=== PATIENT | female | born 1930 | race Caucasian/White ===

== ENCOUNTER 2016-08-03 10:28 | Inpatient (IN) | payer MEDICARE, OTHER ==
[~2016-08-03] VITALS: Ht 170.2 cm; Wt 83.7 kg
--- NOTE | 2016-08-07 11:42 | HP ---
ADMIT: 08/03/2016 RM/LOC: 519 [facility] MR#: [id number] [id number] [address] [place] [address] History and Physical SEX: F AGE: 85 : 1930 DATE OF SERVICE: CHIEF COMPLAINT: Fall and "my butt hurts." HISTORY OF PRESENT ILLNESS: The patient is a very pleasant 85-year-old female. She has a past medical history of dementia with some behavioral disturbance, atrial fibrillation, on chronic anticoagulation, who presents to [facility] Emergency Room today after a fall at [facility]. She was brought in by EMS after she fell and bumped her head. Really does not remember fall, but denies chest pain, syncope, presyncope, or palpitations. She was imaged and found to have pelvic/pubic rami fracture, in excruciating pain, she was admitted for further evaluation and treatment. Right now, the patient states her pain medicines are helping. Does note her head is a little sore, but denies any abdominal pain, bowel or bladder complaints. Due to the patient's dementia, any further history is really difficult to obtain. PAST MEDICAL HISTORY: 1. Alzheimer's dementia with behavioral disturbance. 2. Atrial fibrillation, on chronic anticoagulation. 3. GERD. 4. Constipation. 5. Acid reflux. 6. Hypothyroidism. 7. Peripheral neuropathy. 8. Anxiety/depression. 9. Status post hysterectomy. CURRENT HOME MEDICATIONS: Include: 1. Fluocinolone cream. 2. Lomotil. 3. Milk of mag. 4. Omeprazole. 5. MiraLAX. 6. Quetiapine. ALLERGIES: NO KNOWN MEDICAL ALLERGIES. FAMILY HISTORY: Noncontributory. SOCIAL HISTORY: She is nonsmoker, nondrinker, lives at [facility]. REVIEW OF SYSTEMS: As noted above. All systems reviewed and negative. PHYSICAL EXAMINATION: VITAL SIGNS: 98, 82, 16, 139/61, 94% on room air. GENERAL: This is an elderly female. She is in no apparent distress. She is awake and alert; however, she is a poor historian, confused at times. HEENT: She has a small laceration on the back of her head and then laceration ADMIT: 08/03/2016 RM/LOC: 519 [facility] MR#: [id number] [id number] [address] [place] [address] History and Physical SEX: F AGE: 85 : 1930 on her left ear. She has some ecchymoses, contusions of the left ear as well. There are lacerations on her occiput. NECK: Range of motion good. HEART: Irregularly irregular and a little tachy. LUNGS: Clear. ABDOMEN: Soft, nontender, and nondistended. Positive bowel sounds throughout. EXTREMITIES: She has trace to 1+ edema bilateral extremities. NEUROLOGIC: Cranial nerves are intact. She moves all four extremities. Good recovery auditor strengths. LABORATORY DATA: Lab work shows hemoglobin 11.7, white count of 6, and 225,000 platelets. Sodium 143, potassium 3.5, BUN is 22, creatinine 1.1. EKG shows atrial fibrillation at 87 beats per minute. IMAGING DATA: CT scan of her head shows no bleed, no fracture, no mass. Chest x-ray shows some mild cardiomegaly. She has a little bit of atelectasis. X-rays of the pelvis showed a fracture of the medial left superior pubic ramus with slight comminution of the inferior pubic rami. The hip is not dislocated, there is no hip fracture that is noted. ASSESSMENT AND PLAN: 1. Accidental fall, likely mechanical. 2. Left superior pubic rami fracture and inferior pubic rami fracture. 3. Scalp laceration with left ear pinna hematoma laceration. 4. Atrial fibrillation, on chronic anticoagulation. 5. Gastroesophageal reflux disease. 6. Alzheimer's dementia with behavioral disturbance. At this point, the patient overall seems to be doing well. Pain is under good control. We are going to schedule some Tylenol, use morphine for breakthrough pain. In the past, she had not done well with tramadol. We will try to get her on an oral medication tomorrow morning, but really try to get things under control tonight. We will leave the catheter in tonight. She has had a few higher rates right now. I will do some IV Lopressor as needed. Watch her on telemetry, plan incentive spirometry. Actually, I am going to hold her Eliquis just right now with slight risk of pelvic hematoma, hopefully, if her blood counts are stable, we can continue that in the next day or so, but we will follow her along closely, have Social Work follow along for likely rehab stay following this hospitalization. Anival Rodríguez MD/ juliana JOB #: [id number] CC: Marcus Colon, Attending Physician Marcus Colon, Family Physician
--- NOTE | 2016-08-11 07:12 | DS ---
ADMIT: 08/03/2016 RM/LOC: 519 [facility] MR#: [id number] [address] [address] [place] [address] General Discharge Summary SEX: F AGE: 85 : 1930 ADMISSION DATE: 08/03/2016 DISCHARGE DATE: 08/08/2016 FINAL DIAGNOSES: 1. Fall with pelvic fracture. 2. Atrial fibrillation with rapid ventricular response. 3. Acute blood loss anemia. 4. Severe pain. 5. Dementia. 6. Atrial fibrillation. REASON FOR ADMISSION: This is an 85-year-old female, who sustained a fall at her assisted living, was unable to get up and was in severe amount of pain. She was transferred to the emergency room where she was found to have a pelvic fracture. HOSPITAL COURSE: She was admitted overnight. She had some atrial fibrillation with RVR. Her hemoglobin dropped a gram in less than 24 hours. She was kept inpatient and monitored for this. Hemoglobin did trend down and then stabilized. She was given some IV iron and IV metoprolol to control heart rate. These things stabilized. She was continued on pain medicine regimen throughout her time in the hospital. By the time of discharge, she was able to have some reasonable pain management. We had her set up to go to [facility] upon discharge, which was done. See discharge medications for that list. Marcus Colon MD/ juliana JOB #: [id number] CC: Marcus Colon MD, Attending Physician Marcus Colon MD, Family Physician
--- NOTE | 2016-08-20 19:29 | ER ---
ADMIT: 08/03/2016 RM/LOC: ER [facility] MR#: [id number] [id number] [address] [place] [address] Emergency Room Report SEX: F AGE: 85 : 1930 DATE: 08/03/2016 CHIEF COMPLAINT: Fall, hip pain, and ear laceration. HISTORY OF PRESENT ILLNESS: The patient is an 85-year-old female, [facility], comes in by EMS as a partial trauma as she fell and hit her head. She does have dementia, is not able to give me a good history at this time. It sounds like it was most likely a mechanical fall. At this point, she does not appear to be in distress but does have pain when she moves her left hip. When asked directly, the patient denies any chest pain or shortness of breath or abdominal pain. She denies having any headache at this time and says she can feel all her extremities. REVIEW OF SYSTEMS: Unreliable due to the patient's dementia. PAST MEDICAL HISTORY: 1. Menopause. 2. Alzheimer's. 3. Osteopenia. MEDICATIONS: See nurse's note. ALLERGIES: NONE. SOCIAL HISTORY: The patient lives at a prison, does use alcohol occasionally. Apparently, is a nonsmoker. PHYSICAL EXAMINATION: INITIAL VITAL SIGNS: See the trauma nursing note. HEENT: Head is atraumatic other than the laceration to the left external ear. Pupils are equally round and reactive to light. Extraocular muscles are intact. Airway is patent. No facial or dental injury. NECK: Supple. HEART: Slightly irregular but not tachycardic. LUNGS: Clear to auscultation. ABDOMEN: Soft. MUSCULOSKELETAL: She does have pain with movement of her pelvis and left lower extremity with flexion of the hip, she has pain. Sensation is intact in all 4 extremities. She has good pulses in all 4 extremities. The left lower extremity is not shortened or rotated. LABORATORY DATA: CBC shows hemoglobin of 11.7, otherwise unremarkable. CMP ADMIT: 08/03/2016 RM/LOC: [facility] MR#: [id number] [id number] [address] [place] [address] Emergency Room Report SEX: F AGE: 85 : 1930 is unremarkable. INR is 1.08. EKG shows atrial fibrillation, rate of 87. CT head shows age-related changes, nothing acute. X-ray of pelvis and left hip showed that she does have a superior and inferior pubic rami fracture but no fracture of the femur. EMERGENCY DEPARTMENT COURSE: The patient was called as a partial trauma as she is on blood thinners, and had a fall. It sounds like it was a mechanical fall. The left ear was closed in the Emergency Department, see procedure note for details. She will be admitted to the hospital for pain control and due to the fact the patient is not able to bear weight with her fracture of her pelvis. I contacted Dr. Rodríguez who so I contacted Dr. Rodríguez, who will be admitting the patient to Dr. Colon's service. Howard Pedraza MD/ juliana JOB #: [id number] CC: Howard Pedraza MD, Attending Physician Marcus Colon MD, Family Physician
[2016-09-14] MEDS ORDERED: ASPIRIN EC81 MG PO (13:05)
[2016-09-14] MEDS ORDERED: CELEXA DPS20 MG PO (13:05)
[2016-09-14] MEDS ORDERED: ELIQUIS2.5 MG PO (13:05)
[2016-09-14] MEDS ORDERED: NAMENDA XR28 MG PO (13:07)
[2016-09-14] MEDS ORDERED: LASIX DPS20 MG PO (13:07)
[2016-09-14] MEDS ORDERED: EXELON3 MG PO (13:07)
[2016-09-14] MEDS ORDERED: NEURONTIN DPS100 MG PO (13:07)
[2016-09-14] MEDS ORDERED: LOPRESSOR DPS12.5 MG PO (13:07)
[2016-09-14] MEDS ORDERED: PEPCID DPS20 MG PO (13:08)
[2016-09-14] MEDS ORDERED: THERAPEUTIC MUL1 TAB PO (13:08)
[2016-09-14] MEDS ORDERED: SEROQUEL25 MG PO ×2 (13:08)
[2016-09-14] MEDS ORDERED: SYNTHROID DPS0.05 MG PO (13:08)
[2016-09-14] MEDS ORDERED: TYLENOL EXTRA500 M1 PO (13:09)
== END 2016-08-08 14:30 | DRG 536 ==
LOC: ER 10:28 → 5MS 12:10
PROVIDERS: ADMIT Internal Medicine
DX: S32.82XA Multiple fractures of pelvis without disruption of pelvic ring, initial encounter for closed fracture (principal); D62 Acute posthemorrhagic anemia; G62.9 Polyneuropathy, unspecified; G30.9 Alzheimer's disease, unspecified; J98.11 Atelectasis; F02.81 Dementia in other diseases classified elsewhere, unspecified severity, with behavioral disturbance; I48.91 Unspecified atrial fibrillation; F32.9 Major depressive disorder, single episode, unspecified; E03.9 Hypothyroidism, unspecified; S01.91XA Laceration without foreign body of unspecified part of head, initial encounter; F41.9 Anxiety disorder, unspecified; K21.9 Gastro-esophageal reflux disease without esophagitis; I51.7 Cardiomegaly; M85.80 Other specified disorders of bone density and structure, unspecified site; S01.312A Laceration without foreign body of left ear, initial encounter; W19.XXXA Unspecified fall, initial encounter; K59.00 Constipation, unspecified; Z79.01 Long term (current) use of anticoagulants; Z66 Do not resuscitate

== ENCOUNTER 2016-08-06 12:34 | Inpatient (IN) | payer MEDICARE, OTHER ==
[~2016-08-06] VITALS: Ht 170.2 cm; Wt 81.0 kg
--- NOTE | ~2016-08-06 | PNE ---
"ADMIT DATE: 08/08/16 ROOM#: [place] | MR#: [id number] | | [facility] SABI ROWE | [facility] | [facility] [id number] | | PHYSICAL THERAPY SEX: F AGE: 85 : [birth year] | PROGRESS NOTE EXTENSION Rehab Plan of Care Update Dr. Colon, This letter is regarding your patient Sabi Rowe at [facility], with an original goal date of 09/02/16. The patient has progressed, but would benefit from further safety with gait, transfers, and ADL training to allow for increased safety. We plan to extend this patient until 09/16/16 for daily treatment sessions. PT 5x/week OT 5x/week Please let me know if you have any questions or concerns with these goals or patient's plan of care. Thank you, Samia Milan, PT Corina Medley, OTR-L Therapist Signature: Date: Therapist Signature: Date: Physician Signature: Date: "
--- NOTE | 2016-08-09 02:21 | NUR ---
AT 1955 ON 08/08/16 NURSE WAS IN HALLWAY AND HEARD PATIENT WHIMPER AND THEN SHORTLY AFTER PATIENT STARTED YELLING AND CHAIR ALARM WAS GOING OFF. WHEN NURSE ARRIVED TO PATIENTS ROOM PATIENT WAS LYING ON THE FLOOR IN FRONT OF RECLINER ON HER RIGHT SIDE WITH HER HEAD SLIGHTLY UNDERNEATH OF THE BED. ASSESSMENT COMPLETED NO S/S OF LOSS OF CONSIOUSNESS, PATIENT ALERT AND CONFUSED. PATIENT C/O PAIN TO LEFT HIP AND RIGHT EAR. BILATERAL EYES PERRLA. HAND GRASPS EQUAL. VSS AT 2004 WERE T 97.1, P 81, R 24, B/P 122/56, MAP 68, OXYGEN SATURATION 98% ON ROOM AIR. PATIENT WAS ASSISTED INTO A SITTING POSITION AND WITH 2 ASSIST LIFTED VIA RAFAL LIFT INTO BED. SMALL AMOUNT OF BLOOD NOTED TO PATIENTS RIGHT EAR, AREA CLEANED, NOTED BRUISING TO INNER PINNA OF EAR, NO FURTHER ACTIVE BLEEDING NOTED. PATIENT'S DAUGHTER CALLED AT 2014. 911 CALLED AT 2019 FOR PATIENT TRANSFER TO EMERGENCY ROOM DUE TO UNWITTNESSED FALL WITH HEAD INJURY. AT 2024 EMERGENCY ROOM NURSE CALLED AND GIVEN REPORT. PATIENT LEFT SKILLED CARE VIA AMBULANCE AT 2034 AND PHYSICIAN WAS NOTIFIED AT 2039. RECEIVED CALL FROM EMERGENCY ROOM NURSE AT 2149 THAT PATIENT CHECKED OUT OKAY AND WAS RETURNING TO SKILLED CARE. PATIENT RETURNED TO SKILLED CARE AT 2204. PATIENT HAS BEEN SITTING IN BED WITH SITTER SINCE RETURNING TO SKILLED CARE.
--- NOTE | 2016-08-16 10:34 | NUR ---
PATIENT NOTE SABI HAS BEEN ADMITTED TO [facility] SKILLED CARE FOLLOWING A FALL WHERE SHE SUSTAINED A PELVIC FX. SABI FELL AT HER [facility]. AT [facility], HER FAMILY HAS SINCE MOVED HER TO THE MEMORY WING AT [place]. THE OVERALL GOAL IS FOR SABI TO TRANSFER BACK TO [place]. HER DTR./POA DID SIGN HER ADMISSION PAPERWORK DUE TO SABI BEING CONFUSED AND FORGETFUL WITH THE DX. OF [place]. SABI WILL BE HERE UNDER HER MEDICARE BENEFITS WITH PHYSICAL/OCCUPATIONAL THERAPY THE SKILLED SERVICES. SOCIAL WORK WILL FOLLOW AND ASSIST WITH D/C PLANNING AND WITH CONCERNS THEY ARISE.
--- NOTE | 2016-08-24 14:38 | NUR ---
MDS INTERVIEW DONE ON 08/09/16-PT. IS ALERT, ORIENTED AND COGNTION IS MODERATLY IMPAIRED. PT. KNOWS THE YEAR, MONTH AND UNSURE OF THE DAY OF THE WEEK. PT. CAN REPEAT ALL THREE WORDS BUT NEEDS CUES FOR SOCKS AND BED. PT. DENIES DEPRESSION, STATES HER APPETITE IS GOOD AND SHE SLEEPS PRETTY GOOD AT NIGHT, GETS UP TO USE THE BATHROOM SHE SAYS. NOTED WITH INTERVIEW HER ATTENTION SPAN IS SHORT. IMPORTANT TO CHOOSE THE CLOTHES SHE WEARS, DOES NOT NEED TO LOCK UP HER PERSONEL ITEMS, LIKES TO CHOOSE WHEN SHE GOES TO BED AND ENJOYS SNACKS BETWEEN MEALS. LIKES TO READ MAGAZINES, KEEPS UP WITH THE NEWS, ENJOYS SOME MUSIC. LIKES TO GO OUTSIDE FOR FRESH AIR AND HER FAVORITE THING TO DO WAS TO HAVE FRIENDS COME VISIT. GOAL IS TO GO BACK TO [place] LIKE SHE WAS BEFORE. PT. STATES SHE DOES NOT HAVE ALOT OF PAIN, RATES IT AT A 3, COMES AND GOES, MORE SO WHEN SHE IS UP MOVING. PT. STATES HER PAIN PILLS HELP WHEN SHE GETS THEM. PT. NEEDS ASSIST OF TWO FOR AMBULATION, GAIT IS UNSTEADY, SHUFFLING. NEEDS ASSISTANCE WITH DRESSING HER LOWER BODY DUE TO HER BALANCE AND NEED TO HAVE WALKER FOR SUPPORT. THANKED PT. FOR NICE VISIT AND INTERVIEW. WISHED HER A GOOD DAY.
--- NOTE | 2016-09-13 15:49 | NUR ---
PATIENT NOTE FOLLOWING A 36 DAY STAY HERE AT [facility] SKILLED UNIT MINERVA WAS D/C TO [facility] TODAY AT 1PM. SHE WILL HAVE [facility] FOR RN/PT/OT SERVICES. MINERVA HAS HER OWN WALKER AND W/C. LIZ[facility] WENT AND BOUGHT HER A NEW BED, LIFT CHAIR AND CUSHION FOR HER W/C. [facility] DID COME AND TRANSPORT HER.. D/C ORDERS FAXED TO [facility] ATTN. MINERVA TATE AT [phone].
[2016-09-14] MEDS ORDERED: ELIQUIS2.5 MG PO (13:05)
[2016-09-14] MEDS ORDERED: CELEXA DPS20 MG PO (13:05)
[2016-09-14] MEDS ORDERED: ASPIRIN EC81 MG PO (13:05)
[2016-09-14] MEDS ORDERED: EXELON3 MG PO (13:07)
[2016-09-14] MEDS ORDERED: LASIX DPS20 MG PO (13:07)
[2016-09-14] MEDS ORDERED: LOPRESSOR DPS12.5 MG PO (13:07)
[2016-09-14] MEDS ORDERED: NEURONTIN DPS100 MG PO (13:07)
[2016-09-14] MEDS ORDERED: NAMENDA XR28 MG PO (13:07)
[2016-09-14] MEDS ORDERED: SEROQUEL25 MG PO ×2 (13:08)
[2016-09-14] MEDS ORDERED: SYNTHROID DPS0.05 MG PO (13:08)
[2016-09-14] MEDS ORDERED: THERAPEUTIC MUL1 TAB PO (13:08)
[2016-09-14] MEDS ORDERED: PEPCID DPS20 MG PO (13:08)
[2016-09-14] MEDS ORDERED: TYLENOL EXTRA500 M1 PO (13:09)
== END 2016-09-13 13:00 | disposition home health service (06) | DRG 560 ==
LOC: SNU 12:34
PROVIDERS: ADMIT Internal Medicine
PROC: F07M3ZZ Motor Function Treatment of Musculoskeletal System - Whole Body (ICD-10-PCS; principal; 2016-08-10)
PROC: F08Z4ZZ Home Management Treatment (ICD-10-PCS; principal; 2016-08-10)
DX: S32.512D Fracture of superior rim of left pubis, subsequent encounter for fracture with routine healing (principal); F02.81 Dementia in other diseases classified elsewhere, unspecified severity, with behavioral disturbance; I48.91 Unspecified atrial fibrillation; G30.9 Alzheimer's disease, unspecified; G62.9 Polyneuropathy, unspecified; E87.6 Hypokalemia; D62 Acute posthemorrhagic anemia; E03.9 Hypothyroidism, unspecified; F32.9 Major depressive disorder, single episode, unspecified; S32.592D Other specified fracture of left pubis, subsequent encounter for fracture with routine healing; K21.9 Gastro-esophageal reflux disease without esophagitis; F41.9 Anxiety disorder, unspecified; K59.00 Constipation, unspecified; Z79.01 Long term (current) use of anticoagulants; Z11.1 Encounter for screening for respiratory tuberculosis; Z66 Do not resuscitate

== ENCOUNTER 2016-08-08 20:52 | Emergency (ER) | payer MEDICARE, OTHER ==
--- NOTE | 2016-08-09 01:01 | ER ---
ADMIT: 08/08/2016 RM/LOC: ER [facility] MR#: [id number] [id number] [address] [place] [address] Emergency Room Report SEX: F AGE: 85 : 1930 DATE: 08/08/2016 CHIEF COMPLAINT: Fall. HISTORY OF PRESENT ILLNESS: The patient is an 85-year-old female, discharged this morning to skilled care from acute care after falling on July 03 at [place] sustaining comminuted left pubic rami fracture and a minor closed- head injury with left bloody otorrhea. The patient has stage 6 dementia and unable to give any history of how she fell again tonight, since it was unwitnessed. PAST MEDICAL HISTORY: ALLERGIES: NONE. MEDICATIONS: Please see nurse's MAR. ILLNESSES: Chronic AFib, anticoagulated; GERD; hypothyroidism; peripheral neuropathy; anxiety; depression; dementia. OPERATIONS: Hysterectomy. SOCIAL HISTORY: Nonsmoker, nondrinker, no illicit drugs. Resident of [facility], prior to that [place]. FAMILY HISTORY: Negative per chart review. REVIEW OF SYSTEMS: Unreliable due to dementia. PHYSICAL EXAMINATION: VITAL SIGNS: Temp 97, pulse 75, respirations 15, BP 136/74, SaO2 of 100% on room air. GENERAL: Alert, disoriented, unchanged from baseline. HEENT: Normocephalic. Right bloody otorrhea with obvious external ear abrasion, bloody crusty otorrhea on the left. No evidence of epistaxis or rhinorrhea. Facial bones, mandible intact. NECK: Supple without lymphadenopathy or thyromegaly. CHEST: Clear. Breath sounds equal. Nontender to palpation. HEART: Regular rate and rhythm without murmur, gallop, or edema. ABDOMEN: Obese, nontender, nondistended without mass or megaly. Bowel sounds active. BACK: Erect without deformity. No CVA tenderness. EXTREMITIES: Pelvis tender to compression on the left pubic rami. No shortening or rotation of the legs noted. NEUROVASCULAR: Skin intact. NEURO: EOMI. PERRLA. No evidence of drift, dysarthria, or ataxia. GAIT: Not assessed. MENTAL STATUS: Alert, disoriented, consistent with stage 6 dementia. MEDICAL DECISION MAKING: The patient is a partial trauma. CT head and neck, no acute findings. Chest x-ray, mild CHF. Pelvis shows comminuted left pubic ADMIT: 08/08/2016 RM/LOC: [facility] MR#: [id number] [place] [address] [place] [address] Emergency Room Report SEX: F AGE: 85 : 1930 rami fracture, unchanged. EKG shows atrial fibrillation, low voltage, nonspecific T-wave changes, unchanged from 08/03/2016. Hemoglobin 9.7, unchanged. Electrolytes unchanged. Lactic 1.4, INR 1.15. The patient's wounds were cleansed. Discussed case Dr. Colon and power of deputy prosecuting attorney daughter, Rox Canas, no changes in orders, transferred back to skilled care. DIAGNOSES: 1. Mechanical fall, multifactorial. 2. Stage 6 dementia. 3. Peripheral neuropathy. 4. Chronically anticoagulated for atrial fibrillation. 5. Stable comminuted left pubic rami fracture. RECOMMENDATIONS: Transfer back to skilled care. Continue all orders. CONDITION: Stable. Sammy Gore MD/ juliana JOB #: [id number] CC: Sammy Gore MD, Attending Physician Marcus Colon MD, Family Physician Marcus Colon MD
[2016-09-14] MEDS ORDERED: CELEXA DPS20 MG PO (13:05)
[2016-09-14] MEDS ORDERED: ELIQUIS2.5 MG PO (13:05)
[2016-09-14] MEDS ORDERED: ASPIRIN EC81 MG PO (13:05)
[2016-09-14] MEDS ORDERED: EXELON3 MG PO (13:07)
[2016-09-14] MEDS ORDERED: LOPRESSOR DPS12.5 MG PO (13:07)
[2016-09-14] MEDS ORDERED: LASIX DPS20 MG PO (13:07)
[2016-09-14] MEDS ORDERED: NAMENDA XR28 MG PO (13:07)
[2016-09-14] MEDS ORDERED: NEURONTIN DPS100 MG PO (13:07)
[2016-09-14] MEDS ORDERED: THERAPEUTIC MUL1 TAB PO (13:08)
[2016-09-14] MEDS ORDERED: SYNTHROID DPS0.05 MG PO (13:08)
[2016-09-14] MEDS ORDERED: PEPCID DPS20 MG PO (13:08)
[2016-09-14] MEDS ORDERED: SEROQUEL25 MG PO ×2 (13:08)
[2016-09-14] MEDS ORDERED: TYLENOL EXTRA500 M1 PO (13:09)
== END 2016-08-08 22:00 | disposition home or self-care (01) ==
LOC: ER 20:52
DX: S32.502A Unspecified fracture of left pubis, initial encounter for closed fracture (principal); S01.311A Laceration without foreign body of right ear, initial encounter; F03.90 Unspecified dementia, unspecified severity, without behavioral disturbance, psychotic disturbance, mood disturbance, and anxiety; G62.9 Polyneuropathy, unspecified; D68.318 Other hemorrhagic disorder due to intrinsic circulating anticoagulants, antibodies, or inhibitors; E03.9 Hypothyroidism, unspecified; Z90.710 Acquired absence of both cervix and uterus; Z79.82 Long term (current) use of aspirin; Z79.899 Other long term (current) drug therapy; W19.XXXA Unspecified fall, initial encounter